=== PATIENT | female | born 1970 | race Asian ===

== ENCOUNTER 2023-03-26 09:07 | Day surgery (SDC) | payer OTHER ==
[~2023-03-26] VITALS: Ht 157.5 cm; Wt 61.2 kg
[2023-03-26] MEDS ORDERED: fentaNYL citrate 0.05 MG/ML VIAL ONE ×2 (09:58)
[2023-03-26] MEDS ORDERED: diphenhydrAMINE 50 MG/ML VIAL ONE (09:58)
[2023-03-26] MEDS ORDERED: LIDOCAINE 2% 100 MG/5 ML UJET TP ONE (09:59)
[2023-03-26] MEDS ORDERED: MIDAZOLAM 2 MG/2 ML VIAL ONE (09:59)
[2023-03-26] MEDS ORDERED: fentaNYL citrate 0.05 MG/ML VIAL IVP ONE (11:10)
[2023-03-26] MEDS ORDERED: MIDAZOLAM 2 MG/2 ML VIAL IVP ONE (11:10)
== END 2023-03-26 11:50 | disposition home or self-care (01) ==
LOC: MOR 09:07 → MMU 09:07 → MOR 11:50
PROVIDERS: ATTEND Internal Medicine Gastroenterology
DX: Z12.11 Encounter for screening for malignant neoplasm of colon (principal); D12.4 Benign neoplasm of descending colon; Z98.890 Other specified postprocedural states; Z79.899 Other long term (current) drug therapy
CPT/HCPCS: 45385; 88305; J2250; J3010; J1200